=== PATIENT | male | born 1990 | race Caucasian/White ===

== ENCOUNTER 2020-04-18 15:54 | Inpatient (IN) | payer BC, OTHER ==
--- NOTE | 2020-04-18 16:13 | ED ---
General Adult HPI - General Chief complaint: Psychiatric Symptoms Stated complaint: Suicide Time Seen by Provider: 04/18/20 16:00 Source: patient, RN notes reviewed, old records reviewed Mode of arrival: ambulatory Limitations: no limitations - History of Present Illness Initial comments: This is a 29-year-old male presents emergency department with past medical history significant for depression. Patient states she's on Celexa but he has been on it over urine it has not helped. Patient states lately he is wanting to kill himself and he even has access to guns and is afraid he may use. Patient states she's told his parents this multiple times and today his parents thought he was more seriously decided to bring him to the emergency department. Patient denies any physical complaints today. Patient denies headache patient denies numbness weakness per patient denies chest pain difficulty breathing or shortness of breath. Patient denies abdominal pain patient denies nausea vomiting diarrhea.patient denies any recent fever. - Related Data Home Medications Medication Instructions Recorded Confirmed Cetirizine HCl [Zyrtec] 10 mg PO DAILY 04/18/20 04/18/20 Citalopram Hydrobromide [CeleXA] 10 mg PO DAILY 04/18/20 04/18/20 Allergies Allergy/AdvReac Type Severity Reaction Status Date / Time No Known Allergies Allergy Verified 04/18/20 20:18 Review of Systems ROS Statement: Those systems with pertinent positive or pertinent negative responses have been documented in the HPI. ROS Other: All systems not noted in ROS Statement are negative. Past Medical History Additional Past Medical History / Comment(s): ORTHOPEDIC-BOXER FX. History of Any Multi-Drug Resistant Organisms: None Reported Past Surgical History: Orthopedic Surgery Additional Past Surgical History / Comment(s): Left rotator cuff repair 7 years ago following a sports injury. Past Anesthesia/Blood Transfusion Reactions: No Reported Reaction Past Psychological History: Depression Smoking Status: Former smoker Past Alcohol Use History: Occasional Past Drug Use History: Cocaine, Marijuana, Methamphetamine - Past Family History Father Family Medical History: Cancer Additional Family Medical History / Comment(s): Father is 54 years of age with history of colorectal cancer and back problems. Mother Family Medical History: Thyroid Disorder Additional Family Medical History / Comment(s): Mother is age 59 with history of fibromyalgia, seizures, hypothyroidism. Patient has one sister that is healthy, 1 sister that during her sleep. He does not have any children. General Exam - General Exam Comments Initial Comments: GENERAL: Patient is well-developed and well-nourished. Patient is nontoxic and well- hydrated and is in no acute distress. ENT: Neck is soft and supple. No significant lymphadenopathy is noted. Oropharynx is clear. Moist mucous membranes. Neck has full range of motion without eliciting any pain. EYES: The sclera were anicteric and conjunctiva were pink and moist. Extraocular movements were intact and pupils were equal round and reactive to light. Eyelids were unremarkable. PULMONARY: Unlabored respirations. Good breath sounds bilaterally. No audible rales rhonchi or wheezing was noted. CARDIOVASCULAR: There is a regular rate and rhythm without any murmurs gallops or rubs. ABDOMEN: Soft and nontender with normal bowel sounds SKIN: Skin is clear with no lesions or rashes and otherwise unremarkable. NEUROLOGIC: Patient is alert and oriented x3. Cranial nerves II through XII are grossly intact. Motor and sensory are also intact. Normal speech, volume and content. Symmetrical smile. MUSCULOSKELETAL: Normal extremities with adequate strength and full range of motion. LYMPHATICS: No significant lymphadenopathy is noted PSYCHIATRIC: atient is very depressed and wants to kill himself. Patient states he has access to guns. Patient states his been ongoing but the symptoms are worsening. Patient does state he is but Tylenol with codeine off the street and taken one of his friend's Adderall. Limitations: no limitations Course Vital Signs 04/18/20 04/18/20 15:55 18:32 Temperature 97.5 F L Pulse Rate 83 75 Respiratory 16 18 Rate Blood Pressure 136/96 145/99 O2 Sat by Pulse 97 99 Oximetry Medical Decision Making - Medical Decision Making Dr. Bowden will be taking over the care of this patient at 9pm - Lab Data Lab Results 04/18/20 Range/Units 18:06 Urine Opiates Screen Not Detected (NotDetected) Ur Oxycodone Screen Detected H (NotDetected) Urine Methadone Screen Not Detected (NotDetected) Ur Propoxyphene Screen Not Detected (NotDetected) Ur Barbiturates Screen Not Detected (NotDetected) U Tricyclic Antidepress Not Detected (NotDetected) Ur Phencyclidine Scrn Not Detected (NotDetected) Ur Amphetamines Screen Detected H (NotDetected) U Methamphetamines Scrn Detected H (NotDetected) U Benzodiazepines Scrn Detected H (NotDetected) Urine Cocaine Screen Not Detected (NotDetected) U Marijuana (THC) Screen Detected H (NotDetected) Disposition Referrals: Wally Obrien MD [Primary Care Provider] - 1-2 days
[2020-04-18 18:34] LABS: Cocaine Screen,Urine Not Detected (NotDetected); Phencyclidine Screen,Urine Not Detected (NotDetected); Urn Cannabinoid Scrn Detected (NotDetected)
[2020-04-18 18:35] LABS: Amphetamine Screen,Urine Detected (NotDetected); Barbiturate Screen,Urine Not Detected (NotDetected); Benzodiazepines Screen,Urine Detected (NotDetected); Methadone Screen, Urine Not Detected (NotDetected); Opiate Screen,Urine Not Detected (NotDetected); Oxycodone Screen, Urine Detected (NotDetected); Tricyclic Antidepressant,Urine Not Detected (NotDetected)
[2020-04-18] MEDS ORDERED: MAGNESIUM HYDROXIDE 2,400 MG/10 ML CUP PO PRN (21:07)
[2020-04-18] MEDS ORDERED: ZIPRASIDONE 20 MG VIAL IM PRN (21:07)
[2020-04-18] MEDS ORDERED: MAG HYDROX/AL HYDROX/SIMETH 30 ML CUP PO PRN (21:07)
[2020-04-18] MEDS ORDERED: ACETAMINOPHEN TAB 325 MG TAB PO PRN (21:07)
[2020-04-18] MEDS ORDERED: LORazepam 1 MG TAB PO PRN (21:07)
[2020-04-18] MEDS ORDERED: LORazepam 2 MG/ML INJ IM PRN (21:12)
[2020-04-19 06:39] VITALS: RESP 16
[2020-04-19] MEDS ORDERED: NICOTINE 14MG/24HR PATCH TRANSDERM SCH (09:00)
[2020-04-19 10:23] LABS: Basophils # (A) 0.1 k/uL (0-0.2); Basophils % (A) 1 %; Eosinophils # (A) 0.1 k/uL (0-0.7); Eosinophils % (A) 1 %; HCT 52.2 % (39.0-53.0); HGB 17.8 gm/dL (13.0-17.5); Lymphocytes # (A) 1.5 k/uL (1.0-4.8); Lymphocytes % (A) 16 %; MCH 31.3 pg (25.0-35.0); MCHC 34.1 g/dL (31.0-37.0); MCV 91.8 fL (80.0-100.0); Mean Platelet Volume 6.4; Monocytes # (A) 0.5 k/uL (0-1.0); Monocytes % (A) 5 %; Neutrophils # (A) 6.8 k/uL (1.3-7.7); Neutrophils % (A) 76 %; Platelet Count 286 k/uL (150-450); RBC 5.68 m/uL (4.30-5.90); RDW 12.5 % (11.5-15.5); WBC 8.9 k/uL (3.8-10.6)
[2020-04-19 10:50] LABS: ALT 24 U/L (4-49); AST 34 U/L (17-59); African American GFR (CKD) >90 (>60 ml/min/1.73 sqM); Albumin 5.2 g/dL (3.5-5.0); Alkaline Phosphatase 52 U/L (38-126); Anion Gap 13 mmol/L; Blood Urea Nitrogen 12 mg/dL (9-20); Calcium 10.2 mg/dL (8.4-10.2); Carbon Dioxide 22 mmol/L (22-30); Chloride 103 mmol/L (98-107); Glucose 134 mg/dL (74-99); Non-African American GFR(CKD) >90 (>60 ml/min/1.73 sqM); Potassium 4.5 mmol/L (3.5-5.1); Sodium 138 mmol/L (137-145); Total Bilirubin 0.8 mg/dL (0.2-1.3); Total Protein 8.4 g/dL (6.3-8.2)
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
[2020-04-19 12:11] LABS: Cholesterol 278 mg/dL (<200); HDL Cholesterol 57 mg/dL (40-60); LDL Cholesterol,Calculated 145 mg/dL (0-99); Triglycerides 380 mg/dL (<150)
[2020-04-19 16:31] LABS: Hemoglobin A1C 5.6 % (4.0-6.0)
[2020-04-20 06:43] VITALS: BP 118/70; PULSE 83
--- NOTE | 2020-04-20 11:02 | P.DS ---
Providers Date of admission: 04/18/20 21:03 Expected date of discharge: 04/20/20 Attending physician: Davian Joy MD Consults: 04/18/20 21:07 Consult Physician Routine Consulting Provider: Bong Suárez Consult Reason/Comments: medical management Do you want consulting provider notified?: Yes Primary care physician: Wally Obrien - Discharge Diagnosis(es) (1) Depressive disorder Current Visit: Yes Status: Acute Priority: High (2) Stimulant abuse Current Visit: Yes Status: Acute Priority: Medium (3) Opioid abuse Current Visit: Yes Status: Acute Priority: Medium (4) Cannabis use disorder, moderate, dependence Current Visit: Yes Status: Acute Priority: Medium Hospital Course: Admission HPI: Admission and was committed investment underwriter "Patient is a 29-year-old male who currently lives in a house with his parents works in IT at [employer] and is single, No kids. Patient presented to the hospital yesterday with depression and suicidal thoughts with apparently had access to his father's guns. He claimed in the ER that he has been on Celexa however has not been helping him. According to ER report he apparently had told his parents about his suicidal thoughts who then had brought him into the ER for evaluation. Patient's UDS was positive for oxycodone, amphetamine, methamphetamine, benzodiazepines and marijuana. Patient was seen today and agreeable to speak to investment underwriter. Patient claims that he is having a "meltdown" and states that he was dealing with a lot of "rage" and also depression. He states that he was fighting with his dad recently mainly about wearing masks and different things going on. He states that he's been having multiple stressors at work and also claims that she does not feel like wearing a mask as a "inhibits my breathing". He claims that she has had to deal with a "lot of deaths in my life from other people". And he states that he was feeling suicidal yesterday and had wanted to access his dad's guns. He states that now he would never do that as one of his good friends has shot and killed himself and he states that "I would never want to put anybody through that". He states that he has a lot to live for. He claims that he has been using several different drugs including opiates, Percocets approximately 10 mg a day and also has been buying Adderall on the street approximately 7.5 mg a day. He states that he has been using marijuana daily as frequent as he can. He states that his Celexa has not been helping him and was fairly adamant to investment underwriter that he did not want to be on any other antidepressant medications as it "is poison the drug companies try to make money off us". He states that he wants a more "holistic approach" to his care and wants to stop using drugs "cold turkey". He states that he has been having poor sleep. Patient denies any current suicidal or homicidal ideations intent or plan. At this time patient denies any auditory or visual hallucinations. Patient denies any flight of id eas racing thoughts and increased in goal directed behavior. Patient admits to using drugs as listed above. He denies using any alcohol and any cigarettes." Hospital course: Upon admission to the unit patient was initially argumentative and somewhat irritable endorsing depression. Patient was going through mild substance withdrawal symptoms. Patient was however directable and agreeable to commence treatment and signed adult voluntary form. Patient got along well with other patients on the unit and followed unit protocol. Patient was compliant with the medications and denied any side effects throughout hospital course. Patient was not agreeable to start any medications and patient opted to simply withdrawal from substances during the course of his hospitalization. The drawbacks and bene fits of medications were thoroughly discussed with patient however he continues to not want to take any psychotropic medications. Patient spoke of his stressors and engaged in therapy both group and individual. Patient was also seen by medical team for history and physical exam. Throughout the course of the hospitalization patient gradually improved with regards to mood, anxiety, sleep and became future oriented with improved insight and judgment. On the day of discharge patient denied any suicidal or homicidal ideations intent or plan denied any auditory or visual hallucinations. Patient endorsed wanting to live for his health and his parents. The patient denied any access to guns or weapons. Patient denied any paranoia and did not endorse any delusions. Patient does have a significant history of substance abuse and was counseled on abstaining from all substances including alcohol and marijuana. Patient was offered to go to inpatient substance-abuse rehab and also given the option to go to outpatient [facility] treatment and patient claims that he will still need to think about it and consider which option would be best for him after discussing it more with his parents. Patient was also counseled on the medications and need for regular compliance and was encouraged to follow-up with their outpatient appointment for mental health and also for primary care. Prior to discharge a family meeting will be arranged by social media assistant to answer any questions and ensure safety upon discharge and to ensure that guns and weapons are safely locked away and that parents can monitor patient's condition closely at home. Mental status exam: General Appearance: Patient appears to be stated age is alert, pleasant, and cooperative. Patient is in no acute distress and has improved hygiene and grooming Behavior: Patient is calmly seated without any agitated behavior. Speech: Patient's speech is fluent and nonpressured. Mood/Affect: Patient reports their mood is "better", affect is congruent and euthymic. Suicidality/Homicidality: Patient denies having any suicidal or homicidal ideation intent or plan. Perceptions: Patient denies any auditory or visual hallucinations. Though content/process: There is no evidence of any delusional thought content and thought process is linear and goal-directed. more future oriented Memory and concentration: AOX3, grossly intact for the purposes of this session. Can spell "WORLD" backwards correctly. Judgment and insight: improved with guarded prognosis Impression: Depressive disorder unspecified, rule out secondary to substance abuse Stimulant abuse Opioid abuse Cannabis use disorder, moderate dependence Plan: -Continue with discharge today as patient has improved and stabilized psychiatrically and is not currently an imminent threat to himself and/or others. Patient will remain at chronically elevated risk for harm to self and/or others due to his polysubstance abuse. -Medications: Patient adamantly opposed to be on medications after explaining the risks and benefits of medications and what they could help him with. Patient wanted to focus on groups and possibly going to rehab to focus on abstaining from drugs. -Patient was counseled on the need for medication compliance and appropriate follow-up at mental health and also primary care for medical issues. Patient verbalized understanding and agreed. -Social work to arrange for and conduct family meeting to ensure safety upon discharge and answer any questions/concerns and also to ensure that guns and weapons are locked away and that family is okay having patient back in the house and will keep a closer eye on him to monitor his condition. Social work also to arrange for patients follow up appointments for psychiatric care along with follow up with primary care provider. -Patient counseled on abstaining from recreational drugs and marijuana and alcohol. Was informed/educated on the adverse effects on their physical and mental health. Patient verbally agreed and understood. Patient was offered substance abuse treatment including rehab and other outpatient services and was encouraged to go to rehab however patient states that he does not know which option he would like to go through at this time. -Patient was instructed to return to the hospital or seek immediate medical care if their psychiatric or medical symptoms do worsen or reoccur. Allergies Allergy/AdvReac Type Severity Reaction Status Date / Time No Known Allergies Allergy Verified 04/18/20 20:18 Laboratory Results WBC 8.9 k/uL (3.8-10.6) 04/19/20 09:49 RBC 5.68 m/uL (4.30-5.90) 04/19/20 09:49 Hgb 17.8 gm/dL (13.0-17.5) H 04/19/20 09:49 Hct 52.2 % (39.0-53.0) 04/19/20 09:49 MCV 91.8 fL (80.0-100.0) 04/19/20 09:49 MCH 31.3 pg (25.0-35.0) 04/19/20 09:49 MCHC 34.1 g/dL (31.0-37.0) 04/19/20 09:49 RDW 12.5 % (11.5-15.5) 04/19/20 09:49 Plt Count 286 k/uL (150-450) 04/19/20 09:49 MPV 6.4 04/19/20 09:49 Neutrophils % 76 % 04/19/20 09:49 Lymphocytes % 16 % 04/19/20 09:49 Monocytes % 5 % 04/19/20 09:49 Eosinophils % 1 % 04/19/20 09:49 Basophils % 1 % 04/19/20 09:49 Neutrophils # 6.8 k/uL (1.3-7.7) 04/19/20 09:49 Lymphocytes # 1.5 k/uL (1.0-4.8) 04/19/20 09:49 Monocytes # 0.5 k/uL (0-1.0) 04/19/20 09:49 Eosinophils # 0.1 k/uL (0-0.7) 04/19/20 09:49 Basophils # 0.1 k/uL (0-0.2) 04/19/20 09:49 Sodium 138 mmol/L (137-145) 04/19/20 09:49 Potassium 4.5 mmol/L (3.5-5.1) 04/19/20 09:49 Chloride 103 mmol/L (98-107) 04/19/20 09:49 Carbon Dioxide 22 mmol/L (22-30) 04/19/20 09:49 Anion Gap 13 mmol/L 04/19/20 09:49 BUN 12 mg/dL (9-20) 04/19/20 09:49 Creatinine 0.80 mg/dL (0.66-1.25) 04/19/20 09:49 Est GFR (CKD-EPI)AfAm >90 (>60 ml/min/1.73 sqM) 04/19/20 09:49 Est GFR (CKD-EPI)NonAf >90 (>60 ml/min/1.73 sqM) 04/19/20 09:49 Glucose 134 mg/dL (74-99) H 04/19/20 09:[address] Glu mg/dL 114 04/19/20 09:49 Hemoglobin A1c 5.6 % (4.0-6.0) 04/19/20 09:49 Calcium 10.2 mg/dL (8.4-10.2) 04/19/20 09:49 Total Bilirubin 0.8 mg/dL (0.2-1.3) 04/19/20 09:49 AST 34 U/L (17-59) 04/19/20 09:49 ALT 24 U/L (4-49) 04/19/20 09:49 Alkaline Phosphatase 52 U/L (38-126) 04/19/20 09:49 Total Protein 8.4 g/dL (6.3-8.2) H 04/19/20 09:49 Albumin 5.2 g/dL (3.5-5.0) H 04/19/20 09:49 Triglycerides 380 mg/dL (<150) H 04/19/20 09:49 Cholesterol 278 mg/dL (<200) H 04/19/20 09:49 LDL Cholesterol, Calc 145 mg/dL (0-99) H 04/19/20 09:49 HDL Cholesterol 57 mg/dL (40-60) 04/19/20 09:49 TSH 1.900 mIU/L (0.465-4.680) 04/19/20 09:49 Urine Opiates Screen Not Detected (NotDetected) 04/18/20 18:06 Ur Oxycodone Screen Detected (NotDetected) H 04/18/20 18:06 Urine Methadone Screen Not Detected (NotDetected) 04/18/20 18:06 Ur Propoxyphene Screen Not Detected (NotDetected) 04/18/20 18:06 Ur Barbiturates Screen Not Detected (NotDetected) 04/18/20 18:06 U Tricyclic Antidepress Not Detected (NotDetected) 04/18/20 18:06 Ur Phencyclidine Scrn Not Detected (NotDetected) 04/18/20 18:06 Ur Amphetamines Screen Detected (NotDetected) H 04/18/20 18:06 U Methamphetamines Scrn Detected (NotDetected) H 04/18/20 18:06 U Benzodiazepines Scrn Detected (NotDetected) H 04/18/20 18:06 Urine Cocaine Screen Not Detected (NotDetected) 04/18/20 18:06 U Marijuana (THC) Screen Detected (NotDetected) H 04/18/20 18:06 Coronavirus (PCR) Not Detected (Not Detectd) 04/18/20 20:34 Vital Signs Temp 97.6 F 04/20/20 06:43 Pulse 83 04/20/20 06:43 Resp 16 04/20/20 06:43 BP 118/70 04/20/20 06:43 Pulse Ox 98 04/20/20 06:43 Patient Condition at Discharge: Stable Plan - Discharge Summary Discharge Rx Participant: No New Discharge Prescriptions: New Acetaminophen Tab [Tylenol] 650 mg PO Q4HR PRN tab PRN Reason: Pain/Discomfort Discontinued Cetirizine HCl [Zyrtec] 10 mg PO DAILY Citalopram Hydrobromide [CeleXA] 10 mg PO DAILY Discharge Medication List Acetaminophen Tab [Tylenol] 650 mg PO Q4HR PRN tab 04/20/20 [Rx] Follow up Appointment(s)/Referral(s): Wally Obrien MD [Primary Care Provider] - 1-2 days Activity/Diet/Wound Care/Special Instructions: Activity and diet as tolerated. Avoid the use of street drugs and alcohol. Take all medications as prescribed. When you are in need of refills on your medications please contact your medical provider and/or outpatient psychiatrist to have this done. Please go to scheduled outpatient appointment for aftercare treatment. If symptoms return or become worse, call the crisis line at and/or go to the nearest emergency room for evaluation. Discharge Disposition: HOME SELF-CARE
[2020-04-20 11:54] VITALS: TEMP 98.2
== END 2020-04-20 15:20 | disposition home or self-care (01) | DRG 881 ==
LOC: EC 15:54 → 3MHU 21:03
PROVIDERS: ADMIT Psychiatry & Neurology Psychiatry; ATTEND Psychiatry & Neurology Psychiatry
DX: F32.9 Major depressive disorder, single episode, unspecified (principal); R45.851 Suicidal ideations; Z20.828 Contact with and (suspected) exposure to other viral communicable diseases; F11.10 Opioid abuse, uncomplicated; F15.10 Other stimulant abuse, uncomplicated; F12.20 Cannabis dependence, uncomplicated; F41.9 Anxiety disorder, unspecified; Z79.899 Other long term (current) drug therapy; Z87.891 Personal history of nicotine dependence; Z91.5 Personal history of self-harm; Z98.890 Other specified postprocedural states; Z87.828 Personal history of other (healed) physical injury and trauma; Z80.0 Family history of malignant neoplasm of digestive organs; Z83.49 Family history of other endocrine, nutritional and metabolic diseases; Z82.0 Family history of epilepsy and other diseases of the nervous system; Z82.69 Family history of other diseases of the musculoskeletal system and connective tissue
CPT/HCPCS: 80053; 80061; 80306; 82075; 83036; 84443; 85025; 87635; 99285